=== PATIENT | male | born 1995 | race Caucasian/White ===

== ENCOUNTER 2021-10-19 19:51 | Emergency (ER) | payer OTHER, SELFPAY ==
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
--- NOTE | ~2021-10-19 | CT_ITS ---
EXAMINATION: CT cervical spine wo con DATE: 10/19/2021 21:16 INDICATION: [facility] Headache. Neck pain. TECHNIQUE: Computed tomography (CT) of the cervical spine was performed without intravenous contrast. Automated exposure control and iterative reconstruction technique were employed. Exam dose: 312.71 mGy-cm total exam DLP. COMPARISON: None FINDINGS: There is straightening of the cervical spine which may be due to muscle spasm. C1 and C2 are normally aligned and the odontoid process is intact. No fracture or dislocation or lock ed facet or prevertebral soft tissue swelling. Cervical interspaces are preserved.. IMPRESSION: Straightening; otherwise negative Reviewed, dictated and finalized at [facility]. Reviewed, dictated and finalized at [facility]. 

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
[2021-10-19 19:45] VITALS: BP 121/69; PULSE 69; RESP 20; TEMP 36.5; O2SAT 100
--- NOTE | 2021-10-19 20:08 | ECG_ITS ---
Measurements Intervals [place] Rate: 72 P: 66 TX: 146 QRS: 96 QRSD: 95 T: 62 QT: 330 QTc: 361 Interpretive Statements SINUS RHYTHM WITH MARKED SINUS ARRHYTHMIA RIGHT AXIS DEVIATION BORDERLINE ECG Electronically Signed On 10-20-2021 6:42:34 GUEST SERVICES ASSISTANT by Nathaniel Neely D.O.
[2021-10-19] MEDS: SODIUM CHLORIDE 0.9% IV 1,000 ML 150 ML IV CONT (20:16)
[2021-10-19] MEDS: MORPHINE SULFATE (*CRX) 4 MG/ML INJ IV PUSH (20:17)
[2021-10-19] MEDS: ONDANSETRON INJ 4 MG/2 ML VIAL IV PUSH (20:17)
[2021-10-19 20:22] VITALS: BP 121/73; PULSE 68; RESP 20; O2SAT 98
[2021-10-19 20:38] LABS: Basophils Absolute Auto 0.1 K/mm3 (0.0-0.1); Basophils Percent Auto 0.6 % (0.2-1.2); Eosinophils Percent Auto 0.3 % (0-4.4); Hematocrit 45.3 % (42.0-52.0); Hemoglobin 15.5 g/dL (14.0-18.0); Immature Granulocyte Absolute 0.03 K/mm3 (0.00-0.031); Immature Granulocyte Percent A 0.3 % (0-0.5); Lymphocytes Percent Auto 18.8 % (18.3-44.2); Mean Corpuscular HGB Conc 34.2 g/dl (32-36); Mean Corpuscular Hemoglobin 31.1 pg (26-34); Mean Platelet Volume 10.4 fl (7.4-10.4); Monocytes Absolute Auto 0.5 K/mm3 (0.1-0.6); Monocytes Percent Auto 5.7 % (2.6-8.5); Neutrophils Absolute Auto 6.7 K/mm3 (1.3-6.7); Neutrophils Percent Auto 74.3 % (45.5-73.1); Platelet Count Result 227 k/mm3 (150-375); Red Blood Count 4.98 M/mm3 (4.6-6.20); Red Cell Distribution Width 12.2 % (11.5-14.5)
[2021-10-19 20:40] LABS: Add Urine Microscopic? NO; Appearance Urine Clear (Clear); Bilirubin Urine Negative (Negative); Blood Urine Negative (Negative); Color Urine Yellow (Yellow); Glucose Urine UA Negative (Negative); Ketones Urine Negative (Negative); Leukocyte Esterase Ur Negative LEU/UL (Negative); Nitrate Urine Negative (Negative); Protein Urine Negative (Negative); Specific Grav Ur 1.021 (1.001-1.035); Urobilinogen Urine Negative mg/dL (<2.0)
[2021-10-19 20:50] LABS: Alanine Aminotransferase 14 U/L (4-50); Albumin Level 4.3 g/dL (3.5-5.1); Alkaline Phosphatase 67 U/L (38-126); Anion Gap 7 mmol/L (8-16); Aspartate Amino Transferase 20 U/L (17-59); Bilirubin,Total 0.7 mg/dL (0.2-1.3); Blood Urea Nitrogen 12 mg/dL (9-20); Calcium 9.3 mg/dL (8.4-10.2); Carbon Dioxide 25 mmol/L (22-30); Chloride 106 mmol/L (98-107); Estimated CRCL calculation 105 ml/min; Estimated Glomerular Filt Rate > 60; Glucose 93 mg/dL (65-110); Lipase 36 U/L (23-300); Potassium 3.9 mmol/L (3.4-5.0); Sodium 138 mmol/L (137-145)
--- NOTE | 2021-10-19 21:17 | PC.NURSE ---
Pt to CT scan via stretcher.
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
[2021-10-19 22:25] VITALS: BP 122/83; PULSE 84; RESP 25; O2SAT 100
[2021-10-19 23:28] VITALS: BP 116/79; PULSE 68; RESP 16; O2SAT 98
== END 2021-10-19 23:29 | disposition home or self-care (01) ==
PROVIDERS: Emergency Provider Family Medicine
DX: S00.83XA Contusion of other part of head, initial encounter (principal); S29.9XXA Unspecified injury of thorax, initial encounter; R94.31 Abnormal electrocardiogram [ECG] [EKG]; V43.52XA Car driver injured in collision with other type car in traffic accident, initial encounter
CPT/HCPCS: 36415; 70450; 71260; 72125; 74177; 80053; 81003; 83690; 85025; 93005; 96361; 96374; 96375; 99284; J2270; J2405; J7030; Q9967